=== PATIENT | male | born 2000 | race Caucasian/White ===

== ENCOUNTER 2022-07-17 21:21 | Emergency (ER) | payer OTHER ==
[~2022-07-17] VITALS: Ht 167.6 cm; Wt 81.0 kg
[2022-07-17 21:23] VITALS: BP 122/76
[2022-07-17 23:23] LABS: COVID AG,FIA SOURCE NASAL SWAB
[2022-07-17] MEDS ORDERED: OLANZapine 5 MG TABLET PO ONE (23:30)
== END 2022-07-17 23:00 | disposition home or self-care (01) ==
LOC: EMS 21:39
DX: F41.9 Anxiety disorder, unspecified (principal); Z20.822 Contact with and (suspected) exposure to COVID-19
CPT/HCPCS: 99283